=== PATIENT | male | born 1995 | race Caucasian/White ===

== ENCOUNTER 2018-04-08 00:20 | Emergency (ER) | payer MEDICARE, SELFPAY ==
[2018-04-08 00:20] VITALS: BP 132/107; PULSE 66; RESP 18; TEMP 36.6; O2SAT 98; BMI 22.9
--- NOTE | 2018-04-08 01:01 | ED.DCSUM_ITS ---
- ER Visit Summary Date of Service: 04/08/18 Chief Complaint: Kitten bite History of Present Illness: The patient is a 22 M who presents for evaluation of his left arm after being bitten by a kitten today. Patient states he was trying to catch the kitten and it bit him on the left hand. He denies any pain or swelling at that area. Today he noticed his arm itched and he has several pruritic bumps on the arm that his friends told him were not mosquito bites but rather were cat scratch fever. Patient presents for evaluation of this. He denies any fever, chest pain, shortness of breath, abdominal pain, nausea or vomiting, pain or swelling in the arm or axilla. He complains only of the bumps itching. He does not know when his last tetanus was. He is not concerned for rabies exposure from the kitten. Physical Examination: Vital signs: afebrile, hemodynamically stable, no hypoxia on room air General: well nourished, well developed, in no distress Skin: warm, dry, no pallor HEENT: normocephalic and atraumatic; PERRL, EOMI, moist mucous membranes Cardiovascular: regular rate and rhythm without murmurs, no peripheral edema, 2 + pulses all distal extremities Respiratory: No increased work of breathing, lungs are clear to auscultation bilaterally, no rales, rhonchi or wheezing Abdominal: Abdomen is soft, nontender with normoactive bowel sounds, no guarding or rebound, no masses MSK: Moves all extremities, no deformities, normal strength; 2 healing punctate wounds to the left hyperthenar eminence, no swelling, induration, tenderness, erythema or purulence to this area. Full range of motion of the wrist without any swelling, erythema or lymphangitis. No axillary lymphadenopathy. Examination of the ulnar surface of the left forearm shows scattered erythematous uniformly sized nodules consistent with insect bites. Neuro: Awake and alert, oriented ?4. No facial droop, sensation and motor function intact and symmetric Test Results: [] Emergency Department Course and Treatment: Patient is concerned that the itchy bumps on his arm R cat scratch fever. Patient has no evidence of infection in the left upper extremity, including no pain or swelling at the initial bite site , no lymphangitis, and no axillary lymphadenopathy that would be concerning for Bartonella or other infection. Patient's pruritic bumps do look consistent with mosquito bites or other insect bite. Discussed this with the patient and gave him a dose of oral Benadryl. He was prescribed Benadryl cream to apply to the bites for any further pruritus. He was given return precautions. Patient was discharged home after tetanus booster. Treatment Plan: [] Disposition: [] Impression: Insect bites to left arm This note was generated with [employer] dictation software. It may contain incorrect words, spelling, and punctuation that were not noted in review of the chart prior to signing ED Disposition - Plan for ED Patient: Disposition: Home or Assisted Living Chief Complaint: Rash Prescriptions: Diphenhydramine HCl/Zinc Acet [Benadryl Itch Stopping Crm] 28.3 gm TP 4X/DAY PRN PRN #1 cream..g. PRN Reason: Itching Referrals: Haley Phillips DO [STAFF PHYSICIAN] - 3-5 Days if not improving Care Physician,No Primary [Primary Care Provider] - Additional Instructions: You may use [id number] Benadryl or the Benadryl cream directly on the itchy areas as needed. If you develop a high fever, swelling in your armpit, red streaking from the bite miranda, or any other concerns, return to the emergency department for another evaluation.
--- NOTE | 2018-04-08 01:01 | ED.DEP ---
ED Disposition - Plan for ED Patient: Disposition: Home or Assisted Living Chief Complaint: Rash Prescriptions: Diphenhydramine HCl/Zinc Acet [Benadryl Itch Stopping Crm] 28.3 gm TP 4X/DAY PRN PRN #1 cream..g. PRN Reason: Itching Referrals: Care Physician,No Primary [Primary Care Provider] - Haley Phillips DO [STAFF PHYSICIAN] - 3-5 Days if not improving Additional Instructions: You may use [id number] Benadryl or the Benadryl cream directly on the itchy areas as needed. If you develop a high fever, swelling in your armpit, red streaking from the bite miranda, or any other concerns, return to the emergency department for another evaluation.
--- NOTE | 2018-04-08 01:04 | DCINST.ED_ITS ---
ED Disposition - Plan for ED Patient: Disposition: Home or Assisted Living Chief Complaint: Rash Prescriptions: Diphenhydramine HCl/Zinc Acet [Benadryl Itch Stopping Crm] 28.3 gm TP 4X/DAY PRN PRN #1 cream..g. PRN Reason: Itching Referrals: Care Physician,No Primary [Primary Care Provider] - Haley Phillips DO [STAFF PHYSICIAN] - 3-5 Days if not improving Additional Instructions: You may use [id number] Benadryl or the Benadryl cream directly on the itchy areas as needed. If you develop a high fever, swelling in your armpit, red streaking from the bite miranda, or any other concerns, return to the emergency department for another evaluation.
[2018-04-08] MEDS: DiphenhydrAMINE 25 MG Capsule 50 MG PO (01:35)
[2018-04-08] MEDS: Diphth,Pertuss(Acell),Tet Vac 0.5 ML Vial IM (01:35)
[2018-04-08 01:55] VITALS: PULSE 86; RESP 16; O2SAT 98
== END 2018-04-08 01:56 | disposition home or self-care (01) ==
PROVIDERS: Emergency Provider Emergency Medicine
DX: S40.862A Insect bite (nonvenomous) of left upper arm, initial encounter (principal); W57.XXXA Bitten or stung by nonvenomous insect and other nonvenomous arthropods, initial encounter; S61.452A Open bite of left hand, initial encounter; W55.01XA Bitten by cat, initial encounter; Y93.9 Activity, unspecified; Y92.9 Unspecified place or not applicable; Y99.9 Unspecified external cause status; F32.9 Major depressive disorder, single episode, unspecified; Z72.0 Tobacco use; Z79.899 Other long term (current) drug therapy; Z23 Encounter for immunization
CPT/HCPCS: 90471; 90715; 99283

== ENCOUNTER 2019-10-18 17:53 | Emergency (ER) | payer MEDICARE, SELFPAY ==
[2019-10-18 17:53] VITALS: BP 111/71; PULSE 90; RESP 16; TEMP 36.7; O2SAT 100; BMI 22.3
--- NOTE | 2019-10-18 18:01 | ED.DCSUM_ITS ---
History of Present Illness Chief Complaint: Complaint Informant: Patient Onset: Today Context: Gradual Onset Timing: Intermittent Current Severity: Moderate Maximum Severity: Moderate Narrative: Patient is a 24-year-old male with past medical history for depression presents to the emergency department with hematuria and dysuria. Patient states his symptoms began today. He states he is trying to urinate twice, and has noticed blood within his urine. He also admits to pain. He denies any flank pain. He said no fever or chills. He denies any other systemic symptoms. He states he does have a history of kidney stone, but this feels different. He is not currently sexually active. Prior similar symptoms: No Recent Illness/Hospitalization: No Past Medical History - Allergies and Home Meds Allergies/Adverse Reactions: Allergies No Known Allergies Allergy (Verified 04/08/18 00:21) Primary Care Physician: Care Physician,No Primary [Primary Care Provider] - Prior records reviewed: Yes Past Medical History: - - Depression Surgical History: no surgical history Lives: With Family Smoking Status: Former smoker Review of Systems General: Denies: Chills, Fever, Sweats Eyes: Denies: Visual changes - bilaterally, Diplopia ENT: Denies: Rhinorrhea, Sore throat Cardiovascular: Denies: Chest pain, Palpitations Respiratory: Denies: Dyspnea, Cough, Dyspnea on exertion Gastrointestinal: Denies: Abdominal pain, Nausea, Vomiting, Diarrhea, Melena, Hematochezia Genitourinary: Reports: Dysuria, Hematuria. Denies: Frequency Musculoskeletal: Denies: Back pain, Extremity Pain Skin: Denies: Rash, Wounds Neurological: Denies: Headache, Weakness, Numbness Physical Exam Vital Signs/Narrative: Vital Signs Temp Pulse Resp BP Pulse Ox 10/18/19 17:53 98.0 F 90 16 111/71 100 Inital Vital Signs reviewed: Yes General: Well nourished, Well developed, No Acute Distress Head: Normocephalic, Atraumatic Eyes: Perrl, EOMI ENT: Moist mucous membranes, No rhinorrhea Neck: Supple, Nontender Cardiovascular: Regular rate, Regular rhythm, No murmurs Respiratory: No distress, CTA bilaterally, Chest nontender Abdomen: Soft, Nontender, Nondistended, Normal bowel sounds Back: Nontender, Normal Inspection Extremities: Nontender, No edema Skin: Normal color, No rash Neurological: Alert, Oriented x3, Cranial nerves II-XII grossly intact, Normal Strength, Normal Sensation Psychological: Normal affect, Normal Mood Diagnostic/Tx/Re-eval Abnormal Lab Results 10/18/19 18:10 Urine Color Yellow Urine Clarity Cloudy Urine pH 8.0 Ur Specific [place] 1.015 Urine Protein Negative Urine Glucose (UA) Normal Urine Ketones Negative Urine Occult Blood 25 H Urine Nitrite Negative Urine Bilirubin Negative Urine Urobilinogen 4 H Ur Leukocyte Esterase 25 H Urine RBC 0-5 SEEN Urine WBC 0-5 SEEN Ur Squamous Epith Cells 0 SEEN Amorphous Sediment 1+ Urine Bacteria 2+ Urine Mucus 0 SEEN - Medical Decision Making The patient presents with dysuria and hematuria. He has no flank pain, nausea, or vomiting. He has no genital pain. The pain is only when he urinates. Urine was obtained. There was bacteria and leukocyte esterase. There was also some amorphic sediment. I am not sure if this is a small stone versus an early cystitis. Patient will be treated with Cipro and Pyridium. He is pain-free. He will be discharged home. Impression 1. Acute cystitis ED Disposition - Plan for ED Patient: Instructions: Bladder Infection, Male (Adult) Prescriptions: Ciprofloxacin [Cipro] 500 mg PO BID #14 tab Prescription Printed Phenazopyridine HCl [Pyridium] 200 mg PO TID #10 tab Prescription Printed Referrals: Care Physician,No Primary [Primary Care Provider] -
[2019-10-18 18:17] LABS: Mucous, Urine 0 SEEN /hpf (<or=2+); Squamous Epithelial Cells - UA 0 SEEN /hpf (0-5)
[2019-10-18 18:19] LABS: Color, Urine Yellow (Yellow); Glucose, Dipstick Normal (Normal); Ketone-Dipstick Negative (Negative); Leukocyte Esterase-Dipstick 25 /ul (Negative); Nitrite-Dipstick Negative (Negative); Occult Blood-Urine 25 /ul (Negative); Protein-Dipstick Negative (Negative); Specific Gravity, Urine 1.015 (1.002-1.030); Urine Bilirubin Dipstick Negative (Negative); Urine Clarity Cloudy (Clear); Urine Urobilinogen 4 mg/dl (Normal)
[2019-10-18 18:25] LABS: Amorphous Sediment 1+; Bacteria 2+ /hpf (None Seen); Red Blood Cells-Urine 0-5 SEEN /hpf (0-5); White Blood Cells 0-5 SEEN /hpf (0-5)
[2019-10-18] MEDS: Phenazopyridine 95 MG Tablet 190 MG PO (18:36)
[2019-10-18] MEDS: Ciprofloxacin 500 MG Tablet PO (18:36)
== END 2019-10-18 18:37 | disposition home or self-care (01) ==
LOC: ED 18:07
PROVIDERS: Emergency Provider Emergency Medicine
DX: N30.01 Acute cystitis with hematuria (principal); F32.9 Major depressive disorder, single episode, unspecified; Z79.899 Other long term (current) drug therapy; Z87.442 Personal history of urinary calculi; Z87.891 Personal history of nicotine dependence
CPT/HCPCS: 81001; 99283

== ENCOUNTER 2020-10-29 15:22 | Emergency (ER) | payer MEDICARE, SELFPAY ==
[2020-10-29 15:24] VITALS: BP 99/68; PULSE 108; RESP 16; TEMP 37.2; O2SAT 99; BMI 23.0
--- NOTE | 2020-10-29 15:43 | CT_ITS ---
STUDY: CT BRAIN WITHOUT CONTRAST REASON FOR EXAM: Male, 25 years old. JANG, HIT HEAD ON WALL WHEN SLEEPING RADIATION DOSAGE (If Supplied By Facility): CTDIvol = ( 44.99 ) mGy, DLP = ( 762.36 ) mGycm TECHNIQUE: Transaxial CT imaging of the brain was performed without administration of intravenous contrast material. Individualized dose optimization techniques were used for this CT. COMPARISON: No relevant priors. FINDINGS: Normal soft tissue structures. Normal calvarium. Normal size ventricles and extra-axial spaces for the patient''s age. Normal white matter tracts of the cerebral hemispheres. Normal basal ganglia and thalami. Normal brainstem. Normal cerebellum. There is no intracranial hemorrhage. There are no findings of an acute ischemic infarction. Normal visualized paranasal sinuses. CT/Brain/Head without Contrast IMPRESSION: Normal unenhanced CT scan of the brain. Electronically Signed: Rahul Stout DO at 16:14 EST Tel [phone], Service support ,
--- NOTE | 2020-10-29 15:43 | ED.VIS.GEN ---
History of Present Illness Chief Complaint: Head Injury Informant: Patient Narrative: Male presenting with headache. He states the pain is focally on the top of his head. Hurts when he touches it. Patient states he was tossing and turning in sleep on Thursday when he inadvertently hit his head on the wall. He did not get knocked out. He is not had dizziness, lightheadedness, nausea, vomiting, difficulty ambulating. He states he is taking Tylenol and ibuprofen at home and this has not stopped the pain. Patient has no primary care provider. Past Medical History - Allergies and Home Meds Allergies/Adverse Reactions: Allergies No Known Allergies Allergy (Verified 10/29/20 15:22) Primary Care Physician: Care Physician,No Primary [Primary Care Provider] - Prior records reviewed: Yes Past Medical History: None Surgical History: no surgical history Lives: With Family Smoking Status: Never smoker Alcohol: None Drugs: None Review of Systems General: Denies: Chills, Fever, Sweats Eyes: Denies: Visual changes - bilaterally, Diplopia ENT: Denies: Rhinorrhea, Sore throat Cardiovascular: Denies: Chest pain, Palpitations Respiratory: Denies: Dyspnea, Cough, Dyspnea on exertion Gastrointestinal: Denies: Abdominal pain, Nausea, Vomiting, Diarrhea, Melena, Hematochezia Genitourinary: Denies: Dysuria, Hematuria, Frequency Musculoskeletal: Denies: Back pain, Extremity Pain Skin: Denies: Rash, Wounds Neurological: Reports: Headache. Denies: Weakness, Parasthesia, Numbness Psych: Denies: Depression, Anxiety Physical Exam Vital Signs/Narrative: Vital Signs Temp Pulse Resp BP Pulse Ox 10/29/20 15:24 98.9 F 108 H 16 99/68 99 Inital Vital Signs reviewed: Yes General: Well nourished, Well developed Head: Normocephalic, Atraumatic Eyes: Perrl, EOMI ENT: Moist mucous membranes, No rhinorrhea Cardiovascular: Regular rate, Regular rhythm Respiratory: No distress, CTA bilaterally Extremities: Nontender, No edema Skin: Normal color, No rash. Negative for: Cyanosis, Diaphoresis Neurological: Alert, Oriented x3, Cranial nerves II-XII grossly intact, Normal Strength, Normal Sensation Psychological: Normal affect, Normal Mood Diagnostic/Tx/Re-eval Clinical Impression(s) from Imaging Studies Brain CT 10/29/20 15:43 IMPRESSION: Normal unenhanced CT scan of the brain. Electronically Signed: Rahul Stout DO at 16:14 EST Tel [phone], Service support , - Medical Decision Making 5-year-old male presenting with head pain where he hit his head while sleeping. He has no focal neurologic deficits. He is not have any signs of concussion. He has been alternating Tylenol and ibuprofen without complete resolution. Patient had CT of the brain today which was negative for acute intracranial process. There is no skull deformities or abnormalities. Patient counseled to continue to use ibuprofen and Tylenol and ice the area of concern. Skin return precautions. Impression: 1. Closed head injury ED Disposition - Plan for ED Patient: Disposition: Home or Assisted Living Instructions: ED Head Injury (Adult) Referrals: Care Physician,No Primary [Primary Care Provider] -
[2020-10-29 17:06] VITALS: BP 105/69; PULSE 71; RESP 15; O2SAT 98
== END 2020-10-29 17:07 | disposition home or self-care (01) ==
PROVIDERS: Emergency Provider Student in an Organized Health Care Education/Training Program
DX: S09.90XA Unspecified injury of head, initial encounter (principal); W22.09XA Striking against other stationary object, initial encounter; Y93.84 Activity, sleeping; Y92.003 Bedroom of unspecified non-institutional (private) residence as the place of occurrence of the external cause; Y99.9 Unspecified external cause status
CPT/HCPCS: 70450; 99282

== ENCOUNTER 2024-06-04 13:21 | Emergency (ER) | payer MEDICARE, SELFPAY ==
[2024-06-04 13:22] VITALS: BP 153/115; PULSE 98; RESP 16; TEMP 36.6; O2SAT 96
[2024-06-04 13:26] VITALS: BMI 21.9
--- NOTE | 2024-06-04 13:36 | CT_ITS ---
EXAM: CT HEAD WITHOUT INTRAVENOUS CONTRAST CLINICAL INDICATION: Injury/Pain TECHNIQUE: Multiple axial images were obtained of the head without intravenous contrast. This CT exam was performed using one or more of the following dose reduction techniques: automated exposure control, adjustment of the mA and/or kV according to patient size, and/or use of iterative reconstruction technique. RADIATION DOSE: CTDIvol = 44.99 mGy, DLP = 745.49 mGy-cm COMPARISON: CT head without contrast 10/29/2020. FINDINGS: BRAIN AND EXTRA-AXIAL SPACES: Unremarkable. No intra- or extra-axial hemorrhage. No evidence of acute infarct. No intracranial mass or mass effect. There is preservation of the jaffe/white matter interface. Posterior fossa structures are unremarkable. Ventricles are appropriate for age. No hydrocephalus. Basal cisterns are patent. BONES/JOINTS: Unremarkable. No discrete lytic or blastic abnormalities. SINUSES: Mild mucosal thickening of the right maxillary sinus and minimal mucosal thickening in the left maxillary sinus. Normal remaining paranasal sinuses. MASTOID AIR CELLS: Unremarkable. Clear. ORBITS: Visualized globes, extraocular muscles, optic nerves and retrobulbar fat appear unremarkable. CT/Brain/Head without Contrast IMPRESSION: 1. Negative noncontrast CT head scan. 2. Mild mucosal thickening in the right maxillary sinus and minimal mucosal thickening in the left maxillary sinus and the only new finding since 10/29/2020. Electronically Signed: Otilio Gardner MD at 14:06 EDT ,
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
[2024-06-04] MEDS: Diphth,Pertuss(Acell),Tet Vac 0.5 ML Vial IM (13:46)
[2024-06-04] MEDS: Lidocaine 1% (20 ml mdv) 20 ML Vial INFILT (13:47)
--- NOTE | 2024-06-04 13:55 | RAD_ITS ---
EXAM: XR LEFT HAND COMPLETE, 3 OR MORE VIEWS CLINICAL INDICATION: Injury/Pain TECHNIQUE: Frontal, lateral and oblique views of the left hand. COMPARISON: No relevant prior studies available. FINDINGS: BONES/JOINTS: Unremarkable. No acute fracture. No subluxation. Normal alignment. Preservation of the joint space. No sclerotic or destructive changes observed. SOFT TISSUES: Soft tissue swelling overlying the dorsum of the hand. No radiopaque foreign body. RAD/Hand Min 3 Views IMPRESSION: Soft tissue swelling overlying the dorsum of the left hand but no acute fracture or dislocation of the left hand. Electronically Signed: Otilio Gardner MD at 14:11 EDT ,
[2024-06-04] MEDS: Morphine 4 MG/ML Syringe IV (14:09)
[2024-06-04] MEDS: Ondansetron 4 MG/2 ML Vial IV (14:09)
[2024-06-04] MEDS: LORazepam 2 MG/ML Syringe 1 MG IV (14:25)
--- NOTE | 2024-06-04 14:30 | ED.RN ---
AT APPROX 1420 PT WAS NOTED TO BE CRYING AND SOBBING HYSTERICALLY. PT KNOWN TO HAVE PANIC ATTACK,ANXIETY ATTACKS. THIS RN DISCUSSED WITH DR LUIS AND MEDICATION ORDERED FOR PT
[2024-06-04 15:41] VITALS: BP 121/78; PULSE 80; RESP 16; TEMP 36.6; O2SAT 99
== END 2024-06-04 15:43 | disposition home or self-care (01) ==
PROVIDERS: Emergency Provider Emergency Medicine; Visit Provider Emergency Medicine
DX: S01.81XA Laceration without foreign body of other part of head, initial encounter (principal); S06.0X9A Concussion with loss of consciousness of unspecified duration, initial encounter; S80.212A Abrasion, left knee, initial encounter; M79.602 Pain in left arm; M79.642 Pain in left hand; V28.41XA Electric (assisted) bicycle driver injured in noncollision transport accident in traffic accident, initial encounter; Z23 Encounter for immunization
CPT/HCPCS: 12052; 70450; 73130; 90471; 90715; 96374; 96375; 99285; A4216; J2405